=== PATIENT | male | born 2000 | race Caucasian/White ===

== ENCOUNTER 2021-12-23 23:14 | Emergency (ER) | payer OTHER, MEDICAID ==
[~2021-12-23] VITALS: Ht 172.7 cm; Wt 100.0 kg
[2021-12-23 23:17] VITALS: BP 147/100
[2021-12-23] MEDS ORDERED: ondansetron 4mg rapidly disintigrating tab PO ONE (23:30)
[2021-12-23] MEDS ORDERED: LORazepam 1 MG tablet PO ONE (23:30)
[2021-12-23] MEDS ORDERED: naproxen 500mg tablet PO ONE (23:30)
[2021-12-23] MEDS ORDERED: QUET-1 PO (23:32)
[2021-12-23] MEDS ORDERED: NAPR-56 PO (23:32)
[2021-12-23] MEDS ORDERED: QUEtiapine 25mg tablet PO SCH (23:45)
[2021-12-23] MEDS ORDERED: QUEtiapine 25mg tablet PO ONE (23:45)
[2021-12-24] MEDS ORDERED: QUEtiapine 25mg tablet PO SCH (08:00)
== END 2021-12-24 00:04 | disposition home or self-care (01) ==
LOC: ER 23:15
DX: F41.9 Anxiety disorder, unspecified (principal); F41.0 Panic disorder [episodic paroxysmal anxiety]; R11.0 Nausea; F43.10 Post-traumatic stress disorder, unspecified; Z79.899 Other long term (current) drug therapy
CPT/HCPCS: 99284